=== PATIENT | male | born 1985 | race Caucasian/White ===

== ENCOUNTER 2021-03-18 17:35 | Emergency (ER) | payer MEDICAID ==
[~2021-03-18] VITALS: Ht 182.9 cm; Wt 101.7 kg
[2021-03-18] MEDS ORDERED: normal saline 1000ML IV soln IVB ONE (20:15)
[2021-03-18] MEDS ORDERED: acetaminophen 325mg tablet PO ONE (20:15)
[2021-03-18 20:47] LABS: BASOPHILS % (AUTO) 0.2 % (0-1); EOSINOPHILS # (AUTO) 0.1 X10'3 (0-0.9); EOSINOPHILS % (AUTO) 1.5 % (0-6); HEMATOCRIT 37.6 % (42.0-52.0); HEMOGLOBIN 12.9 g/dl (14.0-17.9); LYMPHOCYTES # (AUTO) 1.5 X10'3 (1.1-4.8); LYMPHOCYTES % (AUTO) 16.5 % (21-51); MEAN CORPUSCULAR HEMOGLOBIN 28.8 PG (27.0-31.0); MEAN CORPUSCULAR HGB CONC 34.4 g/dL (33.0-36.5); MEAN CORPUSCULAR VOLUME 83.7 FL (78-98); MEAN PLATELET VOLUME 9.3 FL (7.4-10.4); MONOCYTES % (AUTO) 10.2 % (2-12); NEUTROPHILS # (AUTO) 6.7 X10'3 (1.8-7.7); NEUTROPHILS % (AUTO) 71.6 % (42-75); PLATELET COUNT 183 X10'3 (140-440); RED BLOOD COUNT 4.49 X10'6 (4.70-6.10); WHITE BLOOD COUNT 9.4 X10'3 (4.5-11.0)
[2021-03-18 21:01] LABS: ALANINE AMINOTRANSFERASE 26 U/L (12-78); ALBUMIN 3.2 G/DL (3.4-5.0); ALBUMIN/GLOBULIN RATIO 0.8 (1.1-1.5); ALKALINE PHOSPHATASE 119 IU/L (46-116); ANION GAP 9 (8-16); ASPARTATE AMINO TRANSFERASE 26 U/L (10-37); BILIRUBIN,TOTAL 0.5 MG/DL (0.1-1.0); BLOOD UREA NITROGEN 11 MG/DL (7-18); BUN/CREATININE RATIO 15.1 (5.4-32.0); CALCIUM 8.8 MG/DL (8.5-10.1); CHLORIDE 104 MMOL/L (99-107); CREATININE 0.73 MG/DL (0.60-1.10); GLUCOSE 100 MG/DL (70-104); POTASSIUM 3.8 MMOL/L (3.5-5.1); SODIUM 141 MMOL/L (135-145); TOTAL CARBON DIOXIDE 28.1 MMOL/L (24-32); TOTAL PROTEIN 7.3 G/DL (6.4-8.2); eGFR > 90 ML/MIN
[2021-03-18] MEDS ORDERED: DOXY100C76 PO (21:49)
[2021-03-18 21:58] VITALS: BP 130/80
== END 2021-03-18 22:08 | disposition home or self-care (01) ==
LOC: ER 17:36
DX: L03.116 Cellulitis of left lower limb (principal); R50.9 Fever, unspecified; F17.200 Nicotine dependence, unspecified, uncomplicated; Z79.2 Long term (current) use of antibiotics
CPT/HCPCS: 36415; 80053; 83605; 85025; 96360; 99283; J7030

== ENCOUNTER 2021-06-25 10:44 | Emergency (ER) | payer MEDICAID ==
[~2021-06-25] VITALS: Ht 182.9 cm; Wt 91.0 kg
[2021-06-25 11:21] VITALS: BP 127/84
--- NOTE | 2021-06-25 15:54 | NUR ---
Attempted to call patient back to a room for the third time, patient was not in lobby. Called listed number and phone had been disconnected. Dr. Angeles [email or web address].
== END 2021-06-25 16:22 | disposition left against medical advice (07) ==
LOC: ER 10:45
DX: R10.9 Unspecified abdominal pain (principal); Z53.21 Procedure and treatment not carried out due to patient leaving prior to being seen by health care provider

== ENCOUNTER 2021-09-25 21:52 | Emergency (ER) | payer MEDICAID | END 2021-09-25 23:49 | disposition left against medical advice (07) | LOC: ER 21:52 | DX: Z53.21 Procedure and treatment not carried out due to patient leaving prior to being seen by health care provider (principal) ==

== ENCOUNTER 2021-10-03 07:45 | Emergency (ER) | payer MEDICAID ==
[~2021-10-03] VITALS: Ht 182.9 cm; Wt 90.9 kg
[2021-10-03 07:51] VITALS: BP 133/83
== END 2021-10-03 10:00 | disposition left against medical advice (07) ==
LOC: ER 07:45
DX: M79.661 Pain in right lower leg (principal); Z53.21 Procedure and treatment not carried out due to patient leaving prior to being seen by health care provider

== ENCOUNTER 2021-10-03 15:12 | Emergency (ER) | payer MEDICAID | END 2021-10-03 21:31 | disposition left against medical advice (07) | LOC: ER 15:16 | DX: B99.9 Unspecified infectious disease (principal); Z53.21 Procedure and treatment not carried out due to patient leaving prior to being seen by health care provider ==

== ENCOUNTER 2022-02-17 11:52 | Emergency (ER) | payer MEDICAID ==
[~2022-02-17] VITALS: Ht 182.9 cm; Wt 95.5 kg
[2022-02-17] MEDS ORDERED: normal saline 1000ML IV soln IVB ONE (12:15)
[2022-02-17] MEDS ORDERED: ondansetron/PF 4mg/2ml inj IV ONE (12:15)
[2022-02-17 12:29] VITALS: BP 135/85
== END 2022-02-17 13:05 | disposition left against medical advice (07) ==
LOC: ER 11:52
DX: B37.0 Candidal stomatitis (principal); T40.415A Adverse effect of fentanyl or fentanyl analogs, initial encounter; Y92.89 Other specified places as the place of occurrence of the external cause
CPT/HCPCS: 71045; 74018; 99284

== ENCOUNTER 2024-11-08 06:28 | Emergency (ER) | payer MEDICAID ==
[~2024-11-08] VITALS: Ht 182.9 cm; Wt 79.5 kg
[2024-11-08] MEDS: charcoal, activated 50 GM/240 ML bottle PO ONE (06:59)
[2024-11-08 07:27] LABS: BASOPHILS % (AUTO) 0.3 % (0-1); EOSINOPHILS # (AUTO) 0.1 X10'3 (0-0.9); EOSINOPHILS % (AUTO) 1.3 % (0-6); HEMATOCRIT 42.5 % (42.0-52.0); HEMOGLOBIN 14.9 g/dl (14.0-17.9); LYMPHOCYTES # (AUTO) 2.1 X10'3 (1.1-4.8); LYMPHOCYTES % (AUTO) 24.7 % (21-51); MEAN CORPUSCULAR HEMOGLOBIN 30.4 PG (27.0-31.0); MEAN CORPUSCULAR HGB CONC 35.1 g/dL (33.0-36.5); MEAN CORPUSCULAR VOLUME 86.8 FL (78-98); MEAN PLATELET VOLUME 9.3 FL (7.4-10.4); MONOCYTES # (AUTO) 0.6 X10'3 (0-0.9); MONOCYTES % (AUTO) 7.2 % (2-12); NEUTROPHILS # (AUTO) 5.7 X10'3 (1.8-7.7); NEUTROPHILS % (AUTO) 66.5 % (42-75); PLATELET COUNT 213 X10'3 (140-440); RED BLOOD COUNT 4.89 X10'6 (4.70-6.10); WHITE BLOOD COUNT 8.5 X10'3 (4.5-11.0)
[2024-11-08 07:34] VITALS: TEMP 98
[2024-11-08 07:49] LABS: ALANINE AMINOTRANSFERASE 26 U/L (12-78); ALBUMIN 3.8 G/DL (3.4-5.0); ALBUMIN/GLOBULIN RATIO 1.1 (1.1-1.5); ALKALINE PHOSPHATASE 86 IU/L (46-116); ANION GAP 8 (8-16); ASPARTATE AMINO TRANSFERASE 27 U/L (10-37); BILIRUBIN,TOTAL 0.3 MG/DL (0.1-1.0); BLOOD UREA NITROGEN 10 MG/DL (7-18); BUN/CREATININE RATIO 11.4 (10.0-20.0); CHLORIDE 104 MMOL/L (99-107); CREATININE 0.88 MG/DL (0.60-1.10); GLUCOSE 99 MG/DL (70-104); POTASSIUM 3.6 MMOL/L (3.5-5.1); SODIUM 140 MMOL/L (135-145); TOTAL CARBON DIOXIDE 28.5 MMOL/L (24-32); TOTAL PROTEIN 7.2 G/DL (6.4-8.2); eCRCL 125 ML/MIN; eGFR > 90 ML/MIN
[2024-11-08 07:52] LABS: ETHANOL < 10 MG/DL (<10); SALICYLATE 0.9 MG/DL (4.0-20.0)
[2024-11-08 07:54] LABS: ACETAMINOPHEN < 2.0 UG/ML (10-30)
[2024-11-08 09:42] VITALS: BP 123/81; PULSE 95; RESP 16; O2SAT 100
== END 2024-11-08 10:07 | disposition left against medical advice (07) ==
LOC: ER 06:28 → EEVIPCON 06:28 → ER 10:07
DX: T40.411A Poisoning by fentanyl or fentanyl analogs, accidental (unintentional), initial encounter (principal); R07.89 Other chest pain; F17.200 Nicotine dependence, unspecified, uncomplicated; Y92.89 Other specified places as the place of occurrence of the external cause
CPT/HCPCS: 36415; 74176; 80053; 80320; 80329; 85025; 93005; 99284

== ENCOUNTER 2024-11-08 10:30 | Emergency (ER) | payer MEDICAID ==
[2024-11-08 11:23] VITALS: BP 136/94; PULSE 90; RESP 16; O2SAT 99
== END 2024-11-08 11:28 ==
LOC: ER 10:31
DX: T40.411A Poisoning by fentanyl or fentanyl analogs, accidental (unintentional), initial encounter (principal); Y92.89 Other specified places as the place of occurrence of the external cause
CPT/HCPCS: 99283